=== PATIENT | female | born 1975 | race Caucasian/White ===

== ENCOUNTER 2025-02-25 08:50 | Inpatient (IN) | payer BC, SELFPAY ==
[2025-02-21 21:53] VITALS: BP 153/92
[2025-02-21 22:20] LABS: Urine Character Slightly Cloudy (Clear)
[2025-02-21 22:22] LABS: Hematocrit 41.6 % (37.0-47.0); Hemoglobin 14.1 g/dL (12.0-16.0); Mean Corp Hgb Conc. 33.9 g/dL (33.0-37.0); Mean Corpuscular Volume 91.8 fL (81.0-99.0); Nucleated Red Blood Cells % 0 %; Platelet Count 245 10^3/uL (130-400); Red Cell Dist. Width 13.4 % (11.5-14.5)
[2025-02-21 22:30] LABS: Urine Squamous Cell 0-2 /LPF (Few); Urine White Cell 30-40 /HPF (0-5)
[2025-02-21 22:40] LABS: ALT (SGPT) 16 U/L (0-35); AST (SGOT) 18 U/L (14-36); Albumin 4.0 g/dl (3.5-5.0); Alkaline Phosphatase 89 U/L (38-126); Blood Urea Nitrogen 10 mg/dl (7-17); Calcium 8.9 mg/dl (8.4-10.2); Carbon Dioxide 28 mmol/L (22-30); Chloride 101 mmol/L (98-107); Glucose 140 mg/dl (70-99); Potassium 4.5 mmol/L (3.5-5.1); Sodium 135 mmol/L (135-145); Total Protein 6.9 g/dl (6.3-8.2); eGFR > 60.00
[2025-02-21 22:49] VITALS: BMI 44.2
[2025-02-21 22:53] VITALS: BP 138/72
[2025-02-21 23:00] VITALS: BP 138/92
--- NOTE | 2025-02-21 23:40 | ED.GENMED ---
History of Present Illness
<Astrid Bruce PA-C - Last Filed: 02/23/25 17:28>
General
Chief Complaint: Flank Pain
Source: patient
Exam Limitations: none
Time Seen by Provider: 02/21/25 23:11
Nursing documentation reviewed up to this point in time: agreed with
History of Present Illness
History of Present Illness:
see mdm
Phy Exam
<Astrid Bruce PA-C - Last Filed: 02/23/25 17:28>
Physical Exam
Physical Exam:
see mdm
Course
<Astrid Bruce PA-C - Last Filed: 02/23/25 17:28>
Orders/Labs/Results
Orders:
Orders
02/21/25 22:09
Complete Blood Count/With Diff Urgent
Comprehensive Metabolic Panel Urgent
HCG, Serum Qualitative Screen Urgent
Comment: ADD ON
Urinalysis Reflex To Culture Urgent
Date Specimen was Collected: 02/21/25
Time Specimen was Collected: 21:59
Urine Microscopic Reflex Cult Urgent
Urine Culture Urgent
BETTIE Source: U
Specimen Description:
Date Specimen was Collected: 02/21/25
Time Specimen was Collected: 21:59
02/21/25 23:22
0.9% Sodium Chloride 1000 ml [Nss] 1,000 ml IV BOLUS
CefTRIAXone [Rocephin] 2,000 mg IV NOW STA
02/21/25 23:32
Lactic Acid Urgent
02/21/25 23:33
Add On- LAB Urgent
Tests Added?: hcg serum qual
02/21/25 23:40
Acetaminophen [Tylenol] 1,000 mg PO NOW STA
HYDROmorphone [Dilaudid] 1 mg IV NOW STA
02/21/25 23:45
Blood Culture Q30M
BETTIE Source: Blood/Venous
Specimen Description:
02/22/25
CT Abd/Pel (IV only)-DH only Urgent
Reason For Exam: L flank pain, eval stone vs pyelo
02/22/25 00:11
Blood Culture Q30M
BETTIE Source: Blood/Venous
Specimen Description:
02/22/25 01:49
US Pelvis W Transvag Combined Urgent
Reason For Exam: fvere, chills, ovarian cyst
02/22/25 03:10
Admit/Transfer Patient As Directed
Co-Sign Provider:
Level of Care: Observation services
Assign to:: Medical/Surgical
Physician / Group: Abdullahi
Diagnosis: UTI
PRN Pain Medication Management As Directed
May give lesser potent ordered pain med per pt: Yes
preference::
Protocol:: Medication orders for pain may be administered in a
manner that supports deferring to patient preference
when the pt is:
- Requesting an ordered lesser potent pain medication.
Least to most potent pain medications are defined
as: acetaminophen < NSAID < tramadol < opioids
(morphine, oxycodone, hydromorphone).
- Requesting a lesser dose of the same medication IF
ORDERED.
- Requesting a less intrusive route of administration
if both routes are prescribed by the provider (PO <
IV).
02/22/25 03:11
Code Status As Directed
Resuscitation Status: Full Code
02/22/25 Breakfast
Regular
At Your Request: Full Participation
Does patient need a safe tray?: No
02/22/25 06:43
Acetaminophen [Tylenol] 650 mg PO Q4HPRN PRN
Bisacodyl [Dulcolax] 10 mg RECTAL [id number] PRN
Docusate W/Senna [Senokot-S] 1 tablet PO BIDPRN PRN
HYDROmorphone [Dilaudid] 0.5 mg IV Q4HPRN PRN
Ketorolac [Toradol] 10 mg IV Q6HPRN PRN
Ondansetron Injectable [Zofran] 4 mg IV Q6HPRN PRN
Polyethylene Glycol Powder [Miralax] 17 grams PO DAILYPRN PRN
02/22/25 06:43
Activity As Directed
Activity Level: With Assistance
Pneumatic Compression Sleeves As Directed
Type: Knee high
Vital Signs As Directed
Frequency: Per unit guidelines
DX Deep Vein Thrombosis Video Routine
02/22/25 20:00
CefTRIAXone [Rocephin] 1,000 mg IV Q24H
Abnormal Lab Results
02/21/25
22:09
WBC 11.7 H 10^3/uL
(4.8-10.8)
MCH 31.1 H pg
(27.0-31.0)
MPV 10.9 H fL
(7.4-10.4)
Absolute Neuts (auto) 10.8 H 10^3/uL
(1.4-6.5)
Absolute Lymphs (auto) 0.4 L 10^3/uL
(1.2-3.4)
Neutrophils % 92.3 H %
(42.2-75.2)
Lymphocytes % 3.5 L %
(20.5-51.1)
Glucose 140 H mg/dl
(70-99)
Ur Occult Blood Reflex 2+ A
(Negative)
Urine Nitrite (Reflex) Positive A
(Negative)
Leukocyte Esterase Rfl 2+ A
(Negative)
Urine RBC 7-10 A /HPF
(0-2)
Urine WBC (Reflex) 30-40 A /HPF
(0-5)
Urine Bacteria (Reflex) Many A
(Negative)
Urine Albumin (Reflex) 1+ A
(Neg - Trace)
02/21/25 22:09
02/21/25 22:09
Vital Signs
Temp: 37.5 C
Initial and Last Documented VS:
Initial Vital Signs
Temp Pulse Resp BP Pulse Ox
36.8 C 92 22 153/92 99
02/21/25 21:53 02/21/25 21:53 02/21/25 21:53 02/21/25 21:53 02/21/25 21:53
Last Documented Vital Signs
Temp Pulse Resp BP Pulse Ox
36.6 C 58 14 142/78 99
02/23/25 15:00 02/23/25 15:00 02/23/25 15:00 02/23/25 15:00 02/23/25 15:00
<Gerardo Solorio, DO - Last Filed: 02/22/25 01:55>
Orders/Labs/Results
Orders:
Orders
02/21/25 22:09
Complete Blood Count/With Diff Urgent
Comprehensive Metabolic Panel Urgent
HCG, Serum Qualitative Screen Urgent
Comment: ADD ON
Urinalysis Reflex To Culture Urgent
Date Specimen was Collected: 02/21/25
Time Specimen was Collected: 21:59
Urine Microscopic Reflex Cult Urgent
Urine Culture Urgent
BETTIE Source: U
Specimen Description:
Date Specimen was Collected: 02/21/25
Time Specimen was Collected: 21:59
02/21/25 23:22
0.9% Sodium Chloride 1000 ml [Nss] 1,000 ml IV BOLUS
CefTRIAXone [Rocephin] 2,000 mg IV NOW STA
02/21/25 23:32
Lactic Acid Urgent
02/21/25 23:33
Add On- LAB Urgent
Tests Added?: hcg serum qual
02/21/25 23:40
Acetaminophen [Tylenol] 1,000 mg PO NOW STA
HYDROmorphone [Dilaudid] 1 mg IV NOW STA
02/21/25 23:45
Blood Culture Q30M
BETTIE Source: Blood/Venous
Specimen Description:
02/22/25
CT Abd/Pel (IV only)-DH only Urgent
Reason For Exam: L flank pain, eval stone vs pyelo
02/22/25 00:11
Blood Culture Q30M
BETTIE Source: Blood/Venous
Specimen Description:
02/22/25 01:49
US Pelvis W Transvag Combined Urgent
Reason For Exam: fvere, chills, ovarian cyst
02/22/25 03:10
Admit/Transfer Patient As Directed
Co-Sign Provider:
Level of Care: Observation services
Assign to:: Medical/Surgical
Physician / Group: Abdullahi
Diagnosis: UTI
PRN Pain Medication Management As Directed
May give lesser potent ordered pain med per pt: Yes
preference::
Protocol:: Medication orders for pain may be administered in a
manner that supports deferring to patient preference
when the pt is:
- Requesting an ordered lesser potent pain medication.
Least to most potent pain medications are defined
as: acetaminophen < NSAID < tramadol < opioids
(morphine, oxycodone, hydromorphone).
- Requesting a lesser dose of the same medication IF
ORDERED.
- Requesting a less intrusive route of administration
if both routes are prescribed by the provider (PO <
IV).
02/22/25 03:11
Code Status As Directed
Resuscitation Status: Full Code
02/22/25 Breakfast
Regular
At Your Request: Full Participation
Does patient need a safe tray?: No
02/22/25 06:43
Acetaminophen [Tylenol] 650 mg PO Q4HPRN PRN
Bisacodyl [Dulcolax] 10 mg RECTAL [id number] PRN
Docusate W/Senna [Senokot-S] 1 tablet PO BIDPRN PRN
HYDROmorphone [Dilaudid] 0.5 mg IV Q4HPRN PRN
Ketorolac [Toradol] 10 mg IV Q6HPRN PRN
Ondansetron Injectable [Zofran] 4 mg IV Q6HPRN PRN
Polyethylene Glycol Powder [Miralax] 17 grams PO DAILYPRN PRN
02/22/25 06:43
Activity As Directed
Activity Level: With Assistance
Pneumatic Compression Sleeves As Directed
Type: Knee high
Vital Signs As Directed
Frequency: Per unit guidelines
DX Deep Vein Thrombosis Video Routine
02/22/25 20:00
CefTRIAXone [Rocephin] 1,000 mg IV Q24H
Abnormal Lab Results
02/21/25
22:09
WBC 11.7 H 10^3/uL
(4.8-10.8)
MCH 31.1 H pg
(27.0-31.0)
MPV 10.9 H fL
(7.4-10.4)
Absolute Neuts (auto) 10.8 H 10^3/uL
(1.4-6.5)
Absolute Lymphs (auto) 0.4 L 10^3/uL
(1.2-3.4)
Neutrophils % 92.3 H %
(42.2-75.2)
Lymphocytes % 3.5 L %
(20.5-51.1)
Glucose 140 H mg/dl
(70-99)
Ur Occult Blood Reflex 2+ A
(Negative)
Urine Nitrite (Reflex) Positive A
(Negative)
Leukocyte Esterase Rfl 2+ A
(Negative)
Urine RBC 7-10 A /HPF
(0-2)
Urine WBC (Reflex) 30-40 A /HPF
(0-5)
Urine Bacteria (Reflex) Many A
(Negative)
Urine Albumin (Reflex) 1+ A
(Neg - Trace)
02/21/25 22:09
02/21/25 22:09
Vital Signs
Initial and Last Documented VS:
Initial Vital Signs
Temp Pulse Resp BP Pulse Ox
36.8 C 92 22 153/92 99
02/21/25 21:53 02/21/25 21:53 02/21/25 21:53 02/21/25 21:53 02/21/25 21:53
Last Documented Vital Signs
Temp Pulse Resp BP Pulse Ox
36.6 C 58 14 142/78 99
02/23/25 15:00 02/23/25 15:00 02/23/25 15:00 02/23/25 15:00 02/23/25 15:00
<Astrid Bruce PA-C - Last Filed: 02/23/25 17:28>
MDM/Problems Addressed
Differential Diagnosis Includes:
see MDM
MDM/Problems Addressed:
Note:
CHIEF COMPLAINT(S)
Kidney stone and related pain.
HISTORY OF PRESENT ILLNESS
The [id number] Y/O a female, has a history of kidney stones and presents with acute onset of LEFT-sided flank pain that began while at her sons baseball game this evenig aroun d7 pm. The symptoms started with chills, initially perceived as being cold
but persisted even after leaving the game. Upon urinating at a nearby location, the pain intensified, accompanied by shivering and an inability to drive due to severity. The patient describes the pain as severe, initially a 10 out of 10, slightly
relieved to a 9 out of 10 with bent knees. L back wrapping around to L flank.
She reports no vomiting but experienced near nausea. There is a history of kidney infection leading to sepsis, previously complicated by an adverse reaction to amoxicillin
PAST MEDICAL AND SURGICAL HISTORY
History of kidney stones with previous stent placement.
Past surgical history includes section and cholecystectomy.
CHRONIC MEDICAL CONDITIONS SIGNIFICANTLY AFFECTING CARE
The patient is on chronic medications including Adderall and Fexofenadine.
SOCIAL DETERMINANTS AFFECTING HEALTH
No explicit social determinants affecting health were discussed.
ALLERGIES
Reported intolerance to penicillin, amoxicillin, and associated medications, causing severe yeast infections.
MEDICATIONS
Adderall and Fexofenadine.
REVIEW OF SYSTEMS
- Urinary System: Flank pain, abnormal urine findings.
- Musculoskeletal System: Severe pain causing inability to drive, particularly on the right side.
- Constitutional: Severe chills, fever reported.
PHYSICAL EXAM
- Abdomen: Tenderness on palpation noted on the right flank area. No other findings reported.
- General Appearance: Significant discomfort and distress due to pain.
Nursing notes reviewed and vital signs reviewed.
PROBLEM LIST
Acute Problems:
- Suspected pyelonephritis
- Abdominal pain secondary to kidney stone
Chronic Problems:
- History of kidney stones
PLAN
The patient will receive intravenous antibiotics, specifically Ceftriaxone, as an empiric treatment for suspected pyelonephritis or urinary tract infection. Intravenous fluids will be administered to maintain hydration. For pain control, Dilaudid
will be administered as the patients pain level is described as very severe. A Computed Tomography scan of the abdomen will be conducted to assess for potential obstructive uropathy or kidney stones.
DIFFERENTIAL DIAGNOSIS
The Differential Diagnosis includes, in no particular order and is not limited to:
1. Pyelonephritis
2. Ureteral stone
3. Cystitis
4. Appendicitis
5. Diverticulitis
6. Ovarian cyst or torsion
7. Pelvic inflammatory disease
8. Gallbladder disease
9. Musculoskeletal pain
10. Renal abscess
49 y/o F
h/o remote kidney stone
started with chills/rigors this evening followed by L sided back pain to L flank
nausea but no vomiting
had one episode of dysuria at the beginning
on exam temp 99.5
feels warm
looks uncomfortable
tender L lower back
abdomen obese, nontender
wbc 11.7 left shift
cr normal
UA positive
CTAP with contrast to eval pyelo/obstruction
anticipate admission
<Astrid Bruce PA-C - Last Filed: 02/23/25 17:28>
*Pulse Oximetry
SaO2: 100
Oxygen Mode of Delivery: Room air
Patient hypoxic: no (99)
*Critical Care Note
Total Time (30-74mins, 75-104mins- exclusive of procedures): Not Applicable
<Gerardo Solorio DO - Last Filed: 02/22/25 01:55>
Update Note
Update Note:
NAME: ZOILA KNOX
DATE OF EXAM: 02/22/2025
Patient No: [id number]
Physician: RAUL
Date of : 1975
Past Medical History (entered by Technologist):
Reason For Exam (entered by Technologist):
Other Notes (entered by Technologist): lt flank pain c/f stones vs pyleo
Additional Information (per [facility]):
CT abdomen/pelvis with contrast
No comparison exam
IMPRESSION:
No bowel or renal obstruction.
No perinephric fat stranding.
Bilateral ovarian cysts or cystic lesions measuring up to 8.3 x 6 cm on the right and 4.2 x 4 cm on the left.
No free air or free fluid.
Appendix not visible.
Cholecystectomy.
Indeterminate low-attenuation hepatic lesions, possibly cysts or hemangiomas.
Small fat-containing umbilical hernia.
Case finalized on 02/22/25 01:20 EST
ED Attending Note
<Astrid Bruce PA-C - Last Filed: 02/23/25 17:28>
-
Portions of this chart may have been created with voice recognition software.� Occasional wrong word or��sound alike� substitutions may have occurred due to the inherent limitations of voice recognition software.
<Gerardo Solorio DO - Last Filed: 02/22/25 01:55>
ED Attending Note
Patient seen and examined by attending physician: Yes
ED Attending Note:
Note:
CHIEF COMPLAINT(S)
Severe back pain and uncontrolled shivering.
HISTORY OF PRESENT ILLNESS
The patient is a 49-year-old female with a past medical history of kidney stones. The patient reported an initial sensation matilde to a yeast infection, noted as pressure in the pelvic area. During a cold evening at her sons event, she experienced
intense shivering, which she describes as 'over the top.' Afterward, while out for pizza, she felt her knees buckle when using the bathroom, although she did not notice any blood in her urine. The shivering intensified, and she developed severe,
stabbing pain in her back, reminiscent of previous kidney stone episodes.
Due to the severity of the shivering and pain, she lay down in her car but was unable to stop shivering and felt excessively cold, despite her children claiming the car temperature was warm. She was unable to drive because of leg shaking and overall
weakness. Her and parents were contacted for assistance due to her condition.
Upon evaluation, there is a suspicion of a urinary tract infection potentially affecting the kidneys. Her clinical presentation suggests a possible acute pyelonephritis or undetected kidney stone, warranting monitoring and treatment.
PAST MEDICAL AND SURGICAL HISTORY
History of kidney stones.
PHYSICAL EXAM
General: Alert, mild acute distress.
Skin: Warm, dry.
Head: Normocephalic, atraumatic.
Neck: Supple, trachea midline.
Eye, Ears, Nose, Mouth, and Throat: Oral mucosa moist.
Cardiovascular: Normal peripheral perfusion, no edema.
Respiratory: Respirations are non-labored.
Gastrointestinal: Abdomen nondistended.
Back: Normal range of motion, normal alignment. Patient reports stabbing pain in the back reminiscent of previous kidney stones.
Musculoskeletal: Normal range of motion, normal strength.
Neurological: Alert and oriented to person, place, time, and situation, no focal neurological deficit observed.
Psychiatric: Cooperative, appropriate mood and affect.
PROBLEM LIST
Acute Problems:
- Severe back pain
- Uncontrolled shivering
- Suspected urinary tract infection with possible kidney involvement
PLAN
- Admit the patient for overnight observation.
- Initiate intravenous antibiotics to treat possible urinary tract infection.
- Monitor vital signs and symptoms to ensure no progression of the condition or complications.
- Consider further imaging if symptoms persist or worsen to rule out any hidden kidney stones.
DIFFERENTIAL DIAGNOSIS
The differential diagnosis includes, in no particular order and is not limited to:
- Acute pyelonephritis
- Kidney stones
- Urinary tract infection
- Sepsis
- Musculoskeletal pain
- Viral infections
- Renal colic
- Pelvic inflammatory disease
- Appendicitis
- Gastroenteritis
Disposition:
SUMMARY OF ENCOUNTER
The patient, a 49-year-old female with a history of kidney stones, was seen in the emergency department due to severe back pain and uncontrolled shivering. She reported sensations similar to a yeast infection followed by intense shivering during a
cold evening at her sons event. Symptoms included stabbing back pain reminiscent of kidney stones and significant shivering indicating a potential urinary tract infection affecting the kidneys. Evaluation suggested possible acute pyelonephritis. She
was managed with observation and treatment for a suspected urinary tract infection.
DISPOSITION
Admit
ASSESSMENT
The symptoms and clinical presentation suggest the patient is experiencing an acute episode of pyelonephritis with possible involvement of a urinary tract infection.
PLAN
The patient will be admitted for overnight observation and receive intravenous antibiotics to address the suspected urinary tract infection. Her vital signs and symptoms will be monitored closely to prevent progression or complications. Further
imaging may be considered if symptoms persist or worsen to assess for kidney stones.
MEDICAL DECISION MAKING
-Complexity of Data Reviewed: Chronic conditions affecting care [history of kidney stones] Differential diagnosis includes acute pyelonephritis, kidney stones, urinary tract infection, sepsis, musculoskeletal pain, viral infections, renal colic,
pelvic inflammatory disease, appendicitis, gastroenteritis.
DIAGNOSIS
1. Acute Pyelonephritis (ICD-10: N10)
2. Urinary Tract Infection (ICD-10: N39.0)
Discharge Plan
Departure
Patient Disposition: Admit
Date of Disposition: 02/22/25
Time of Disposition: 01:54
Presentation/result/management discussed w/ accepting MD/DO: Hospitalist
Discharge Problem:
Urinary tract infection, Fever
Interventions
Interventions:
*Risk Screen - Suicide Last Done: 02/21/25 21:57
*General Assessment Last Done: 02/21/25 22:50
*Neglect/Abuse Screening Last Done: 02/21/25 21:57
*ED- Fall Risk Assessment Last Done: 02/21/25 22:50
*ED COVID-19 Vaccine History Last Done: 02/21/25 21:57
*ED Influenza Vaccine History Last Done: 02/21/25 21:57
*Nursing Disposition Last Done: 02/22/25 14:33
VT-Iqkhkq-Bzoowtcxmf Assessment Last Done: 02/21/25 22:51
ED-Female Genitourinary Assessment Last Done: 02/21/25 22:51
Discharge Date and Time
Discharge Date/Time: 02/22/25 14:33
[2025-02-22 00:05] LABS: HCG, Serum Qualitative Screen Negative
[2025-02-22] MEDS: NSS 1000 IV (00:09)
[2025-02-22] MEDS: DILAUDID 1 MG IV ×3 (00:10→20:25)
[2025-02-22] MEDS: TYLENOL 1000 MG PO (00:10)
[2025-02-22] MEDS: ROCEPHIN 2000 MG IV ×2 (00:21→21:54)
--- NOTE | 2025-02-22 02:41 | HPS.HSE ---
Family Physician
-
Family Physician: Yifan Montalvo
Chief Complaint
-
Flank pain
History of Present Illness
This is a 49-year-old female past medical history significant for nephrolithiasis, ovarian cyst, anxiety who presents to the emergency department with worsening left-sided flank pain rigors and chills.
Patient reported that she has been having symptoms for about 1 week with pelvic fullness and discomfort as well as hesitancy. Over the last 24 hours she has developed urgency and some frequency. When she tried to urinate today she had severe flank
pain on the left side radiating to the groin. She denies any blood and thought this may be similar to her prior kidney stone. She reports having shaking chills and rigors throughout the day. She did not measure her temperature at home but she has
been taking intermittent Advil for generalized aches and pains. She denies any vomiting but did have nausea exacerbated by smell of food.
Intermittent back pain patient had a Tmax of 99.5, blood pressure 138/90 with a pulse rate of 92 and was satting 95% on room air.
WBC was 11.7 with normal hemoglobin and platelet counts. Electrolyte BUN/creatinine level in the normal range. UA was markedly positive.
CT of the abdomen pelvis was mostly unremarkable with bilateral ovarian cystic lesions, no hydronephrosis, perinephric fat stranding, nephrolithiasis to suggest a complicated urinary tract infection.
Medical History
Past Medical History
Past Medical History: Reports Psychiatric (Anxiety)
Additional Past Medical History:
Nephrolithiasis status post total stenting and removal, complicated by yeast infection secondary to antibiotics (specifically amoxicillin).
Past Surgical History: Reports Appendectomy and
Social History
Tobacco: Non-smoker
Alcohol: None
Drug: None
Living: With Family
Family History
Family History: Not pertinent
Allergies / Home Medications
Allergies reflects when Allergies were last updated in [employer].
Home Medications with original date entered in [employer]
Allergy/Medication List:
Allergies
Allergy/AdvReac Type Severity Reaction Status Date / Time
Sulfa (Sulfonamide Allergy Hives Verified 02/21/25 21:59
Antibiotics)
Escitalopram 10 mg tablets, 10 mg p.o. daily
Lorazepam 0.5 mg tablets, 0.5 mg to 1 mg p.o. daily as needed anxiety
Review of Systems
-
Constitutional: Reports No Symptoms
EENT: Reports No Symptoms
Respiratory: Reports No Symptoms
Cardiac: Reports No Symptoms
Abdomen/GI: Reports Nausea
: Reports Flank Pain (Left-sided) and Urgency
Musculoskeletal: Reports No Symptoms
Skin: Reports No Symptoms
Neurological: Reports No Symptoms
Endocrine: Reports No Symptoms
Hematologic/Lymphatic: Reports No Symptoms
Psych: Reports No Symptoms
Physical Exam
Vital Signs
Vital Signs
Temp Pulse Resp BP Pulse Ox
99.5 F 92 22 138/92 94
02/22/25 01:00 02/21/25 21:53 02/21/25 21:53 02/21/25 23:00 02/22/25 00:28
Physical Exam
General: Well Developed, Well Nourished and No Apparent Distress
HEENT: NormoCephalic, Moist mucous membranes and Atraumatic
Respiratory: Clear
Cardiac: S1/S2 and Regular Rhythm; No Murmur or Rub
GI: Soft, Non Distended and Normal Bowel Sounds; No Organomegaly
Rectal: Deferred by Provider
Genito-urinary: Deferred by me
Musculoskeletal: No Clubbing, No Cyanosis and No Edema
Skin: No Rash
Neuro: AO x 3 and Nonfocal/grossly intact
Laboratory Results
-
02/21/25 22:09
02/21/25 22:09
Laboratory Results
Lactic Acid 1.4 mmol/L (0.7-2.0) 02/22/25 00:11
Total Bilirubin 0.8 mg/dl (0.2-1.3) 02/21/25 22:09
AST 18 U/L (14-36) 02/21/25 22:09
ALT 16 U/L (0-35) 02/21/25 22:09
Alkaline Phosphatase 89 U/L (38-126) 02/21/25 22:09
Data Reviewed
-
CT Scan: Report Reviewed by me
Lab Data: Labs Reviewed by me
Impression/Plan
-
IMPRESSION:
49-year-old female with past medical history significant for ovarian cyst, nephrolithiasis and anxiety who presents to the emergency department with pelvic fullness, recent urinary urgency and flank pain with the rigors and chills found to have mild
leukocytosis but markedly positive UA. She had a low-grade temp of 98.5. The CT of the abdomen pelvis shows no acute findings and specifically shows no stones or urinary system obstruction. She does have known ovarian cysts measuring 8.3 x 6
centimeters on the right and 4.2 x 4 on the left. No evidence of ruptured cyst.
PLAN:
Suspected early pyelonephritis
-Admit to MedSurg observation
-IV ceftriaxone
-Pain control and antiemetics
-Urine cultures have been sent, blood cultures afebrile
-Status post IV fluids in the ED, diet as tolerated for now
� pelvic u/s to eval ovarian cysts for rupture
DVT prophylaxis�SCDs
CODE STATUS�full code
[2025-02-22] MEDS: DILAUDID 0.5 MG IV ×2 (07:10→12:19)
[2025-02-22 07:17] VITALS: BP 108/71
[2025-02-22] MEDS: ZOFRAN 4 MG IV (12:18)
[2025-02-22] MEDS: ATIVAN 0.5 MG PO ×2 (12:34→20:26)
[2025-02-22] MEDS: LEXAPRO 10 MG PO (12:34)
--- NOTE | 2025-02-22 13:03 | PTCARENOTE ---
pt c/o central tight chest pain. MD aware. ekg nsr. dilaudid, zofran, and ativan admin. positive prelim cultures gram - baccili. Dr. burgess made aware. will monitor.
--- NOTE | 2025-02-22 13:20 | W.PN.HOSP.TC ---
Today's Communication/Plan
-
Transition to IV Zosyn due to bacteremia
Consult infectious disease
Follow cultures and CBC
Analgesics and antiemetics
Assessment / Plan
Assessment / Plan
#GNR bacteremia
#Suspected left pyelonephritis
- Presented with sudden onset flank pain, rigors while at her son's baseball game yesterday
- Initial concern for ruptured ovarian cyst though gynecologic US without consistent findings
- Blood cultures x 2 came back for GNRs; CT in ED showed likely inflammation of left renal pelvis
- Initially started on ceftriaxone, escalate to IV Zosyn for now and consult ID
- Continue to trend CBC and temperature curve, follow cultures
- Continue analgesics and antiemetics, encourage oral hydration
#H/O nephrolithiasis
- CT scan here without any signs of kidney or ureter stones
#H/O ovarian cyst
- CT scan here shows ovarian cyst though no signs of rupture
#Generalized anxiety
- Ordered patient's home Lexapro and Ativan
Diet: Regular
Thromboprophylaxis: SCDs, low risk with ambulation
CODE STATUS: Full code
Disposition: Home, likely in 48 hours
Anticipated Discharge: > 48 hours
Subjective/Interval History
-
Date of Service: February 22, 2025
Seen and examined at the bedside. No acute events reported overnight. AFVSS this morning
Blood cultures x 2 with preliminary positive findings of gram-negative rods.
Patient states she still has some left flank pain, only slightly improved with current analgesics
Objective Data
-
Vital Signs:
Vital Signs
Temp Pulse Resp BP Pulse Ox
97.9 F 57 17 108/71 95
02/22/25 12:16 02/22/25 07:17 02/22/25 07:17 02/22/25 07:17 02/22/25 07:17
Review of Systems
-
History Source: Patient
All other systems: Reviewed and negative
Physical Exam
-
General: Well Developed, Well Nourished, Obese and Other (Appears ill)
HEENT: Normocephalic, Atraumatic and Moist Mucous Membranes
Respiratory: Clear to Auscultation and Non Labored Respirations; Negative Accessory Resp Muscle Use
Cardiac: Regular Rhythm and S1/S2; Negative Murmur, Rub or Gallop
GI: Soft, Nondistended, Normal Bowel Sounds and Tender (Left-sided, nonperitoneal)
Musculoskeletal: No Clubbing, No Cyanosis and No Edema
Skin: Warm and Dry; Negative Rash
Neuro: AO x 3, Nonfocal/Grossly Intact and Central Nerve's Intact
Psych: Calm
Data Reviewed
-
Labs: Labs Reviewed by me, Discussed with Physician (Infectious disease) and Discussed with Patient
--- NOTE | 2025-02-22 14:42 | CON.ID ---
Consultation
-
Date/Time Consultation Requested: February 22, 2025 1318
Date/Time Consultation Performed: February 22, 2025 1440
Requesting Provider: Dr. Sherman Lakhani
Performing Provider: Dr. Collette Parish
Reason for Consultation: Bacteremia/UTI
Chief Complaint / Past History
Chief Complaint
Left flank pain, rigors and fevers
History of Present Illness
49-year-old female with history of nephrolithiasis who presented to the ED last night due to severe left flank pain and rigors. She started having bladder pressure and urinary frequency on February 20. She took a dose of fluconazole
thinking it was a yeast infection. Yesterday while at her son's baseball game, she suddenly developed left flank pain and shivers. After the game, she took her son out to dinner. She continued to feel unwell with violent shaking chills. She then
came to the ER. White count was 11.7. Urine analysis positive nitrite, 2+ leukocyte esterase, 30-40 white blood cells. Urine culture pending. Admission blood cultures x [address] of the abdomen pelvis shows
enhancement/inflammation changes of the left renal pelvis. She received ceftriaxone in the ER then changed to Zosyn today. Patient reports last history of pyelonephritis was 5 years ago when she had obstructive uropathy requiring stent placement
and subsequently removed. Patient prefers to avoid amoxicillin which always gives her severe vaginal use yeast infection.
Past History
Additional Past Medical History:
Nephrolithiasis hx ureter stent
Anxiety
Ovarian cysts
Appendectomy
Allergy History:
Sulfa (Sulfonamide Antibiotics) Allergy (Verified 02/21/25 21:59)
Hives
Medications Reviewed: Yes
Current Antibiotics:
Status post ceftriaxone in ER
Zosyn
Social History
Tobacco: Non-Smoker
Alcohol: None
Drug: None
Personal:
Living: With Family
Employment: Employed (Teacher)
Family History
Family History: Not Pertinent
Review of Systems
Review of Systems
General: Fever, Chills and Change in Appetite
HEENT: Negative Sinus Problems or Headache
Cardiovascular: Negative Chest Pain or Dyspnea
Respiratory: Negative Dyspnea or Cough
Gasteroenterology: Negative Nausea, Vomiting or Diarrhea
Genital / Urological: Dysuria and Flank Pain
Endocrine: Weakness
Skin / Hair / Nails: Negative Rash
All systems: All other systems were reviewed and were negative
Vital Signs
Temp Pulse Resp BP Pulse Ox
97.9 F 57 17 108/71 95
02/22/25 12:16 02/22/25 07:17 02/22/25 07:17 02/22/25 07:17 02/22/25 07:17
Physical Exam
Physical Exam
Constitutional: Acutely Ill
Eyes: No Conjunctival Hemorrhage and Sclera Anicteric
Cardiovascular: Regular Rate and S1/S2
Pulmonary: Clear
Gastrointestinal: Soft, Non Tender and Non Distended
Genito-Urinary: CVA Tenderness (left)
Extremities: Negative Edema
Neurological: AO x 3
Lab / Diagnostic Study Results
02/21/25 22:09
02/21/25 22:09
Abs Immat Gran (auto) 0.0 10^3/uL (0-0.05) 02/21/25 22:09
Absolute Neuts (auto) 10.8 10^3/uL (1.4-6.5) H 02/21/25 22:09
Absolute Lymphs (auto) 0.4 10^3/uL (1.2-3.4) L 02/21/25 22:09
Absolute Monos (auto) 0.4 10^3/uL (0.1-0.6) 02/21/25 22:09
Absolute Basos (auto) 0.0 10^3/uL (0-0.2) 02/21/25 22:09
Immature Gran % 0.3 % (0-0.5) 02/21/25 22:09
Neutrophils % 92.3 % (42.2-75.2) H 02/21/25 22:09
Lymphocytes % 3.5 % (20.5-51.1) L 02/21/25 22:09
Monocytes % 3.3 % (1.7-9.3) 02/21/25 22:09
Eosinophils % 0.3 % (0-6) 02/21/25 22:09
Basophils % 0.3 % (0-2) 02/21/25 22:09
Lactic Acid 1.4 mmol/L (0.7-2.0) 02/22/25 00:11
Ur Squamous Epith Cells 0-2 /LPF (Few) 02/21/25 22:09
Microbiology Results
Micro:
02/22/25 00:11 Blood Culture - Preliminary
Blood/Venous Escherichia coli
Gram Stain - Preliminary
02/22/25 00:11 Blood Culture - Preliminary
Blood/Venous Positive culture in progress
Gram Stain - Preliminary
02/21/25 22:09 Urine Culture - Pending
Urine
02/22/25 CT a/p: No renal or ureteral calculus. No bladder calculus. No hydronephrosis or obstructive uropathy. Findings suspicious for mild inflammatory changes in the left renal sinus and renal pelvis, concerning for urinary tract
infection/pyelitis. Clinical correlation recommended. Incidental bilateral ovarian cysts measuring up to 8.2 cm on the right and 4 cm in length. Low-attenuation intrahepatic space-occupying lesions. There appears to be a couple of cysts, though
there are other enhancing low-attenuation structures noted. Possibly hemangiomas. Further characterization would be recommended with follow-up MRI.
02/22/25 Pelvic US: Bilateral dominant ovarian cysts measuring up to 7.3 cm on the right and 8.7 cm on the left. Ovarian blood flow documented. Incidental small uterine fibroid.Bilateral dominant ovarian cysts measuring up to 7.3 cm on the right and
8.7 cm on the left. Ovarian blood flow documented. Incidental small uterine fibroid.
Assessment / Plan
# Complicated UTI/left pyelonephritis
# E. coli bacteremia
# Leukocytosis
-CT a/p: no hydronephrosis; + left pyelitis
-Can de-escalate Zosyn back to ceftriaxone. Biofire -> E. coli is NOT ESBL.
- Repeat blood cx's x 2 in am.
- Trend wbc/temps.
# Enlarging bilateral ovarian cysts
- Follow-up with [facility] outpatient.
[2025-02-22 14:47] VITALS: BP 165/98; BMI 42.7
[2025-02-22] MEDS: TORADOL 10 MG IV ×2 (15:12→22:04)
[2025-02-22] MEDS: STERILE WATER FOR INJECTION 20 ML IV (22:14)
[2025-02-22 23:05] VITALS: BP 128/71
[2025-02-23 07:00] VITALS: BP 147/79
[2025-02-23] MEDS: LEXAPRO 10 MG PO (08:25)
[2025-02-23] MEDS: TYLENOL 650 MG PO (08:27)
[2025-02-23] MEDS: ZOFRAN 4 MG IV ×2 (09:05→22:32)
[2025-02-23 09:51] LABS: Hematocrit 37.3 % (37.0-47.0); Hemoglobin 12.6 g/dL (12.0-16.0); Mean Corp Hgb Conc. 33.8 g/dL (33.0-37.0); Mean Corpuscular Volume 91.9 fL (81.0-99.0); Nucleated Red Blood Cells % 0 %; Platelet Count 188 10^3/uL (130-400); Red Cell Dist. Width 13.3 % (11.5-14.5)
[2025-02-23 10:14] LABS: Blood Urea Nitrogen 8 mg/dl (7-17); Calcium 8.5 mg/dl (8.4-10.2); Carbon Dioxide 26 mmol/L (22-30); Chloride 103 mmol/L (98-107); Estimated Creatinine Clearance 103 ml/min; Glucose 91 mg/dl (70-99); Potassium 4.2 mmol/L (3.5-5.1); Sodium 134 mmol/L (135-145); eGFR > 60.00
--- NOTE | 2025-02-23 11:01 | W.PN.HOSP.TC ---
Today's Communication/Plan
-
Continue ceftriaxone
Follow initial and repeat cultures
Check B12 and folate
Trend CBC and temperature curve
Assessment / Plan
Assessment / Plan
#E. coli bacteremia
#Left pyelitis
- Presented with sudden onset flank pain, rigors while at her son's baseball game yesterday
- Initial concern for ruptured ovarian cyst though gynecologic US without consistent findings
- Blood cultures x 2 came back for GNRs; CT in ED showed likely inflammation of left renal pelvis
- Initially started on ceftriaxone, ID consulted and recommended to continue ceftriaxone
- Continue ceftriaxone 2 g daily for bacteremia, consider prolonged course of 10 to 14 days
- Continue to trend CBC and temperature curve, follow initial and repeat cultures
- Continue analgesics and antiemetics, encourage oral hydration
#Leukopenia
- Likely secondary to inflammatory process, initially with leukocytosis
- Will check vitamin B12 and folate levels for completeness, replete as needed
- Trend CBC with differential
#H/O nephrolithiasis
- CT scan here without any signs of kidney or ureter stones
#H/O ovarian cyst
- CT scan here shows ovarian cyst though no signs of rupture
#Generalized anxiety
- C/W patient's home Lexapro and Ativan regimen
Diet: Regular
Thromboprophylaxis: SCDs, low risk with ambulation
CODE STATUS: Full code
Disposition: Home in 24-48 hours
Anticipated Discharge: 24 - 48 hours
Subjective/Interval History
-
Date of Service: February 23, 2025
Seen and examined at the bedside. No acute events reported overnight. AFVSS this morning
Patient states she is developed some dysuria since admission. White cell count down from 11.7-4.5
Denies any other new complaints today. States appetite is fine. Occasional nausea. Denies chest pain, dyspnea, fevers or chills
Objective Data
-
Labs:
Laboratory Results
02/23/25
08:57
WBC 4.5 L
Hgb 12.6
Hct 37.3
Plt Count 188 D
Sodium 134 L
Potassium 4.2
Chloride 103
Carbon Dioxide 26
BUN 8
Creatinine 0.9
Glucose 91
Calcium 8.5
Vital Signs:
Vital Signs
Temp Pulse Resp BP Pulse Ox
98.2 F 74 16 147/79 93
02/23/25 07:00 02/23/25 07:00 02/23/25 07:00 02/23/25 07:00 02/23/25 07:00
I&O
02/22/25 02/23/25 02/24/25
06:59 06:59 06:59
Intake Total 960 / 960
Balance 960 / 960
Review of Systems
-
History Source: Patient
All other systems: Reviewed and negative
Physical Exam
-
General: Well Developed, Well Nourished, No Apparent Distress and Other (Appears ill, slightly toxic)
HEENT: Normocephalic, Atraumatic and Moist Mucous Membranes
Respiratory: Clear to Auscultation, Non Labored Respirations and Accessory Resp Muscle Use
Cardiac: Regular Rhythm and S1/S2; Negative Murmur, Rub or Gallop
GI: Soft, Nontender, Nondistended and Normal Bowel Sounds
Genito-urinary: No Costovertebral Tender
Musculoskeletal: No Clubbing, No Cyanosis and No Edema
Skin: Warm and Dry; Negative Rash
Neuro: AO x 3, Nonfocal/Grossly Intact and Central Nerve's Intact; Negative Tremors
Psych: Calm
Data Reviewed
-
Labs: Labs Reviewed by me, Discussed with Physician (ID) and Discussed with Patient
--- NOTE | 2025-02-23 11:07 | W.PN.ID1 ---
Date of Service
Date of Service: February 23, 2025
Today's Communication
Continue ceftriaxone.
Assessment / Plan
# Complicated UTI/left pyelonephritis
# E. coli bacteremia
# Leukocytosis - resolved
-CT a/p: no hydronephrosis; + left pyelitis
- Await Ucx.
-Continue ceftriaxone. (Biofire -> E. coli is NOT ESBL)
- Repeat blood cx's x 2 pending
- Trend wbc/temps.
# Enlarging bilateral ovarian cysts
- Follow-up with [facility] outpatient.
Chief Complaint
-: UTI and Bacteremia
Subjective / Review of Systems
Left flank pain improved. Now more urine symptoms of dysuria, frequency.
Vital Signs / Physical Exam
Vital Signs
Vital Signs
Temp Pulse Resp BP Pulse Ox
98.2 F 74 16 147/79 93
02/23/25 07:00 02/23/25 07:00 02/23/25 07:00 02/23/25 07:00 02/23/25 07:00
Physical Exam
Constitutional: No Acute Distress
Cardiovascular: Regular Rate and S1/S2
Pulmonary: Clear
Gastrointestinal: Soft, Non Tender and Non Distended
Genito-Urinary: CVA Tenderness (left, mild)
Extremities: Negative Edema
Neurological: AO x 3
Objective Data
Lab Data
Lab Results
02/23/25 08:57
02/23/25 08:57
Estimated Creat Clear 103 ml/min 02/23/25 08:57
Lactic Acid 1.4 mmol/L (0.7-2.0) 02/22/25 00:11
Total Bilirubin 0.8 mg/dl (0.2-1.3) 02/21/25 22:09
AST 18 U/L (14-36) 02/21/25 22:09
ALT 16 U/L (0-35) 02/21/25 22:09
Alkaline Phosphatase 89 U/L (38-126) 02/21/25 22:09
Most recent labs reviewed.
Micro Results:
02/21/25 22:09 Urine Culture - Preliminary
Urine
02/23/25 09:48 Blood Culture - Pending
Blood/Venous
02/23/25 08:57 Blood Culture - Pending
Blood/Venous
02/22/25 00:11 Blood Culture - Preliminary
Blood/Venous Positive culture in progress
Gram Stain - Final
02/22/25 00:11 Blood Culture - Preliminary
Blood/Venous Escherichia coli
Gram Stain - Preliminary
02/22/25 CT a/p: No renal or ureteral calculus. No bladder calculus. No hydronephrosis or obstructive uropathy. Findings suspicious for mild inflammatory changes in the left renal sinus and renal pelvis, concerning for urinary tract
infection/pyelitis. Clinical correlation recommended. Incidental bilateral ovarian cysts measuring up to 8.2 cm on the right and 4 cm in length. Low-attenuation intrahepatic space-occupying lesions. There appears to be a couple of cysts, though
there are other enhancing low-attenuation structures noted. Possibly hemangiomas. Further characterization would be recommended with follow-up MRI.
02/22/25 Pelvic US: Bilateral dominant ovarian cysts measuring up to 7.3 cm on the right and 8.7 cm on the left. Ovarian blood flow documented. Incidental small uterine fibroid.Bilateral dominant ovarian cysts measuring up to 7.3 cm on the right and
8.7 cm on the left. Ovarian blood flow documented. Incidental small uterine fibroid.
--- NOTE | 2025-02-23 14:59 | CM ---
manager placement reviewed patient's chart and patient was admitted under OBS, OBS letter provided to patient signed and placed on chart, patient lives with her spouse and 2 kids in a 2 story home, patient is independent with adl's and ambulation, no
dme, patient drives, home when stable no needs when stable.
PCP: Dr Montalvo
Pharmacy: [facility] in [place]
[2025-02-23 15:00] VITALS: BP 142/78
[2025-02-23] MEDS: DILAUDID 1 MG IV ×2 (15:13→22:33)
[2025-02-23] MEDS: TORADOL 10 MG IV (18:20)
[2025-02-23] MEDS: ATIVAN 0.5 MG PO (20:47)
[2025-02-23] MEDS: ROCEPHIN 2000 MG IV (22:33)
[2025-02-23] MEDS: STERILE WATER FOR INJECTION 20 ML IV (22:33)
[2025-02-23 23:15] VITALS: BP 132/74
[2025-02-24 07:00] VITALS: BP 139/79
[2025-02-24 07:48] LABS: Hematocrit 37.9 % (37.0-47.0); Hemoglobin 12.6 g/dL (12.0-16.0); Mean Corp Hgb Conc. 33.2 g/dL (33.0-37.0); Mean Corpuscular Volume 95.0 fL (81.0-99.0); Platelet Count 187 10^3/uL (130-400); Red Cell Dist. Width 13.3 % (11.5-14.5)
[2025-02-24 08:24] LABS: Absolute Neutrophils -Man Diff 1.8 10^3/uL (1.4-6.5); Normal RBC Morphology Yes; Platelets Checked Yes; Total Cells Counted 100
[2025-02-24 09:09] LABS: Folate 9.9 ng/ml (2.76-20); Vitamin B12 883 pg/ml (239-931)
[2025-02-24] MEDS: LEXAPRO 10 MG PO (09:11)
[2025-02-24] MEDS: ZOFRAN 4 MG IV ×2 (10:37→21:20)
--- NOTE | 2025-02-24 10:44 | W.PN.ID1 ---
Date of Service
Date of Service: February 24, 2025
Today's Communication
- Tomorrow anticipate transition to cipro 500mg po bid through 03/02.
Assessment / Plan
# Complicated UTI/left pyelonephritis
# E. coli bacteremia
# Leukocytosis - resolved, now leukopenia
-CT a/p: no hydronephrosis; + left pyelitis
- Ucx. E. coli
-Repeat bcx neg to date.
-Continue ceftriaxone (d4)
- Tomorrow anticipate transition to cipro 500mg po bid through 03/02.
# Enlarging bilateral ovarian cysts
- Follow-up with [facility] RN outpatient.
Chief Complaint
-: UTI and Bacteremia
Subjective / Review of Systems
Continues to feel a little better. Urine sxs better.
Vital Signs / Physical Exam
Vital Signs
Vital Signs
Temp Pulse Resp BP Pulse Ox
98.0 F 55 18 139/79 96
02/24/25 07:00 02/24/25 07:00 02/24/25 07:00 02/24/25 07:00 02/24/25 07:00
Physical Exam
Constitutional: No Acute Distress
Cardiovascular: Regular Rate and S1/S2
Pulmonary: Clear
Gastrointestinal: Soft, Non Tender and Non Distended
Genito-Urinary: CVA Tenderness (left, mild)
Extremities: Negative Edema
Neurological: AO x 3
Objective Data
Lab Data
Lab Results
02/24/25 07:06
02/23/25 08:57
Estimated Creat Clear 103 ml/min 02/23/25 08:57
Lactic Acid 1.4 mmol/L (0.7-2.0) 02/22/25 00:11
Total Bilirubin 0.8 mg/dl (0.2-1.3) 02/21/25 22:09
AST 18 U/L (14-36) 02/21/25 22:09
ALT 16 U/L (0-35) 02/21/25 22:09
Alkaline Phosphatase 89 U/L (38-126) 02/21/25 22:09
Most recent labs reviewed.
Micro Results:
02/21/25 22:09 Urine Culture - Preliminary
Urine Escherichia coli
02/22/25 00:11 Blood Culture - Final
Blood/Venous Escherichia coli
Gram Stain - Final
02/22/25 00:11 Blood Culture - Preliminary
Blood/Venous Escherichia coli
Gram Stain - Preliminary
02/23/25 09:48 Blood Culture - Preliminary
Blood/Venous No Growth in 24 hours- Final report to follow
02/23/25 08:57 Blood Culture - Preliminary
Blood/Venous No Growth in 24 hours- Final report to follow
02/22/25 CT a/p: No renal or ureteral calculus. No bladder calculus. No hydronephrosis or obstructive uropathy. Findings suspicious for mild inflammatory changes in the left renal sinus and renal pelvis, concerning for urinary tract
infection/pyelitis. Clinical correlation recommended. Incidental bilateral ovarian cysts measuring up to 8.2 cm on the right and 4 cm in length. Low-attenuation intrahepatic space-occupying lesions. There appears to be a couple of cysts, though
there are other enhancing low-attenuation structures noted. Possibly hemangiomas. Further characterization would be recommended with follow-up MRI.
02/22/25 Pelvic US: Bilateral dominant ovarian cysts measuring up to 7.3 cm on the right and 8.7 cm on the left. Ovarian blood flow documented. Incidental small uterine fibroid.Bilateral dominant ovarian cysts measuring up to 7.3 cm on the right and
8.7 cm on the left. Ovarian blood flow documented. Incidental small uterine fibroid.
--- NOTE | 2025-02-24 11:06 | W.PN.HOSP.TC ---
Today's Communication/Plan
-
Continue IV ceftriaxone
Follow repeat culture
Plan to transition to oral antibiotics tomorrow
Assessment / Plan
Assessment / Plan
#E. coli bacteremia
#Left pyelitis
- Presented with sudden onset flank pain, rigors while at her son's baseball game yesterday
- Initial concern for ruptured ovarian cyst though gynecologic US without consistent findings
- Blood cultures x 2 came back for GNRs; CT in ED showed likely inflammation of left renal pelvis
- Initially started on ceftriaxone, ID consulted and recommended to continue ceftriaxone
- Urine cultures with pansensitive E. coli, continue IV ceftriaxone 2 g for today
- Continue to trend CBC and temperature curve, follow repeat cultures
- Continue analgesics and antiemetics, encourage oral hydration
- Plan to transition to ciprofloxacin tomorrow through 03/02 per ID rec
#Leukopenia
- Likely secondary to inflammatory process, initially with leukocytosis
- B12 and folate within normal range
- Trend CBC with differential
#H/O nephrolithiasis
- CT scan here without any signs of kidney or ureter stones
#H/O ovarian cyst
- CT scan here shows ovarian cyst though no signs of rupture
#Generalized anxiety
- C/W patient's home Lexapro and Ativan regimen
Diet: Regular
Thromboprophylaxis: SCDs, low risk with ambulation
CODE STATUS: Full code
Disposition: Home in 24-48 hours
Anticipated Discharge: 24 - 48 hours
Subjective/Interval History
-
Date of Service: February 24, 2025
Seen and examined at bedside. No acute events reported overnight. AFVSS this morning
Patient states she still has some discomfort in the abdomen and dysuria. Occasional nausea as persistent as well. Does states she feels slightly better generally
Denies any new complaints today. Folate and B12 levels WNL on labs, WBC down trended. Blood culture with pansensitive E. coli
Objective Data
-
Labs:
Laboratory Results
02/24/25
07:06
WBC 2.9 L
Hgb 12.6
Hct 37.9
Plt Count 187
Vital Signs:
Vital Signs
Temp Pulse Resp BP Pulse Ox
98.0 F 55 18 139/79 96
02/24/25 07:00 02/24/25 07:00 02/24/25 07:00 02/24/25 07:00 02/24/25 07:00
I&O
02/23/25 02/24/25 02/25/25
06:59 06:59 06:59
Intake Total 960 / 960 360 / 360
Balance 960 / 960 360 / 360
Review of Systems
-
History Source: Patient
All other systems: Reviewed and negative
Physical Exam
-
General: Well Developed, No Apparent Distress and Obese
HEENT: Normocephalic, Atraumatic, Moist Mucous Membranes and Anicteric
Respiratory: Clear to Auscultation and Non Labored Respirations; Negative Accessory Resp Muscle Use
Cardiac: Regular Rhythm and S1/S2; Negative Murmur, Rub or Gallop
GI: Soft, Nondistended, Normal Bowel Sounds and Other (Mild left-sided tenderness without peritoneal findings)
Genito-urinary: No Costovertebral Tender and Other (No suprapubic discomfort)
Musculoskeletal: No Clubbing, No Cyanosis and No Edema
Skin: Warm and Dry; Negative Rash
Neuro: AO x 3, Nonfocal/Grossly Intact and Central Nerve's Intact
Psych: Calm
Data Reviewed
-
Labs: Labs Reviewed by me, Discussed with Physician (ID) and Discussed with Patient
[2025-02-24 15:00] VITALS: BP 137/80
[2025-02-24] MEDS: ATIVAN 0.5 MG PO ×2 (16:33→21:18)
[2025-02-24] MEDS: STERILE WATER FOR INJECTION 20 ML IV (21:16)
[2025-02-24] MEDS: ROCEPHIN 2000 MG IV (21:16)
[2025-02-24] MEDS: DILAUDID 1 MG IV (21:31)
[2025-02-24 22:52] VITALS: BP 119/68
[2025-02-25 07:20] VITALS: BP 121/76
[2025-02-25] MEDS: LEXAPRO 10 MG PO (08:22)
--- NOTE | 2025-02-25 08:51 | W.PN.HOSP.TC ---
Today's Communication/Plan
-
Discharge
Ciprofloxacin through 03/02
Assessment / Plan
Assessment / Plan
#E. coli bacteremia
#Left pyelitis
- Presented with sudden onset flank pain, rigors while at her son's baseball game yesterday
- Initial concern for ruptured ovarian cyst though gynecologic US without consistent findings
- Blood cultures x 2 came back for GNRs; CT in ED showed likely inflammation of left renal pelvis
- Initially started on ceftriaxone, ID consulted and recommended to continue ceftriaxone
- Urine cultures with pansensitive E. coli, continue IV ceftriaxone 2 g for today
- Continue to trend CBC and temperature curve, follow repeat cultures
- Continue analgesics and antiemetics, encourage oral hydration
- Plan to transition to ciprofloxacin through 03/02 per ID rec
#Leukopenia
- Likely secondary to inflammatory process, initially with leukocytosis
- B12 and folate within normal range
- Trend CBC with differential
#H/O nephrolithiasis
- CT scan here without any signs of kidney or ureter stones
#H/O ovarian cyst
- CT scan here shows ovarian cyst though no signs of rupture
#Generalized anxiety
- C/W patient's home Lexapro and Ativan regimen
Diet: Regular
Thromboprophylaxis: SCDs, low risk with ambulation
CODE STATUS: Full code
Disposition: Home in 24-48 hours
Anticipated Discharge: Today
Subjective/Interval History
-
Date of Service: February 25, 2025
Seen and examined at the bedside. No acute events reported overnight. AFVSS this morning
White cell count stable. No fevers or chills. Patient states pain and nausea are improving
Denies any new complaints today. States she feels well enough for home
Objective Data
-
Labs:
Laboratory Results
02/25/25
08:24
WBC Pending
Hgb Pending
Hct Pending
Plt Count Pending
Vital Signs:
Vital Signs
Temp Pulse Resp BP Pulse Ox
97.8 F 50 16 121/76 97
02/25/25 07:20 02/25/25 07:20 02/25/25 07:20 02/25/25 07:20 02/25/25 07:20
I&O
02/24/25 02/25/25 02/26/25
06:59 06:59 06:59
Intake Total 360 / 360 1440 / 1440
Balance 360 / 360 1440 / 1440
Review of Systems
-
History Source: Patient
All other systems: Reviewed and negative
Physical Exam
-
General: Well Developed, No Apparent Distress and Obese
HEENT: Normocephalic, Atraumatic, Moist Mucous Membranes and Anicteric
Respiratory: Clear to Auscultation and Non Labored Respirations; Negative Accessory Resp Muscle Use
Cardiac: Regular Rhythm and S1/S2; Negative Murmur, Rub or Gallop
GI: Soft, Nontender, Nondistended and Normal Bowel Sounds
Genito-urinary: No Costovertebral Tender and Other (No suprapubic tenderness)
Musculoskeletal: No Clubbing, No Cyanosis and No Edema
Skin: Warm and Dry; Negative Rash
Neuro: AO x 3, Nonfocal/Grossly Intact and Central Nerve's Intact
Psych: Calm
Data Reviewed
-
Labs: Labs Reviewed by me, Discussed with Physician (Infectious disease) and Discussed with Patient
[2025-02-25 09:04] LABS: Hematocrit 37.4 % (37.0-47.0); Hemoglobin 12.4 g/dL (12.0-16.0); Mean Corp Hgb Conc. 33.2 g/dL (33.0-37.0); Mean Corpuscular Volume 93.3 fL (81.0-99.0); Nucleated Red Blood Cells % 0 %; Platelet Count 214 10^3/uL (130-400); Red Cell Dist. Width 13.2 % (11.5-14.5)
--- NOTE | 2025-02-25 09:57 | W.PN.ID1 ---
Date of Service
Date of Service: February 25, 2025
Today's Communication
-Transition ceftriaxone (d4) to cipro 500mg po bid through 03/02.
- DC home today
Assessment / Plan
# Complicated UTI/left pyelonephritis
# E. coli bacteremia
# Leukocytosis - resolved, now leukopenia
-CT a/p: no hydronephrosis; + left pyelitis
- Ucx. E. coli
-Repeat bcx neg to date.
-Transition ceftriaxone (d4) to cipro 500mg po bid through 03/02.
- discussed potential side effects of cipro including tendinitis, C. diff.
# Enlarging bilateral ovarian cysts
- Follow-up with [facility] outpatient.
Chief Complaint
-: UTI and Bacteremia
Subjective / Review of Systems
Feels much improved.
Vital Signs / Physical Exam
Vital Signs
Vital Signs
Temp Pulse Resp BP Pulse Ox
97.8 F 50 16 121/76 97
02/25/25 07:20 02/25/25 07:20 02/25/25 07:20 02/25/25 07:20 02/25/25 07:20
Physical Exam
Constitutional: No Acute Distress
Cardiovascular: Regular Rate and S1/S2
Pulmonary: Clear
Gastrointestinal: Soft, Non Tender and Non Distended
Genito-Urinary: Negative CVA Tenderness
Extremities: Negative Edema
Neurological: AO x 3
Objective Data
Lab Data
Lab Results
02/25/25 08:24
02/23/25 08:57
Estimated Creat Clear 103 ml/min 02/23/25 08:57
Lactic Acid 1.4 mmol/L (0.7-2.0) 02/22/25 00:11
Total Bilirubin 0.8 mg/dl (0.2-1.3) 02/21/25 22:09
AST 18 U/L (14-36) 02/21/25 22:09
ALT 16 U/L (0-35) 02/21/25 22:09
Alkaline Phosphatase 89 U/L (38-126) 02/21/25 22:09
Most recent labs reviewed.
Micro Results:
02/23/25 09:48 Blood Culture - Preliminary
Blood/Venous No Growth in 48 hours- Final report to follow
02/23/25 08:57 Blood Culture - Preliminary
Blood/Venous No Growth in 48 hours- Final report to follow
02/21/25 22:09 Urine Culture - Final
Urine Escherichia coli
02/22/25 00:11 Blood Culture - Final
Blood/Venous Escherichia coli
Gram Stain - Final
02/22/25 00:11 Blood Culture - Preliminary
Blood/Venous Escherichia coli
Gram Stain - Preliminary
02/22/25 CT a/p: No renal or ureteral calculus. No bladder calculus. No hydronephrosis or obstructive uropathy. Findings suspicious for mild inflammatory changes in the left renal sinus and renal pelvis, concerning for urinary tract
infection/pyelitis. Clinical correlation recommended. Incidental bilateral ovarian cysts measuring up to 8.2 cm on the right and 4 cm in length. Low-attenuation intrahepatic space-occupying lesions. There appears to be a couple of cysts, though
there are other enhancing low-attenuation structures noted. Possibly hemangiomas. Further characterization would be recommended with follow-up MRI.
02/22/25 Pelvic US: Bilateral dominant ovarian cysts measuring up to 7.3 cm on the right and 8.7 cm on the left. Ovarian blood flow documented. Incidental small uterine fibroid.Bilateral dominant ovarian cysts measuring up to 7.3 cm on the right and
8.7 cm on the left. Ovarian blood flow documented. Incidental small uterine fibroid.
[2025-02-25] MEDS: CIPRO 500 MG PO (11:10)
--- NOTE | 2025-02-25 11:56 | W.DCSUMMARY ---
Discharge Summary
Discharge Data
Date of Admission: 02/25/25
Date of Discharge: 02/25/25
Total time spent discharging patient (in min): 32
-
Pending Results: Yes
Additional Pending Results:
Repeat blood cultures (negative at 48 hours)
Hospital Course
Discharging physician: Sherman Lakhani DO
Discharge disposition: Home
Hospital primary diagnoses:
E. coli bacteremia
Left-sided pyelitis
Enlarging ovarian cyst
Nausea
Chronic discharge diagnoses:
Nephrolithiasis
Ovarian cyst
Anxiety
Hospital course:
49-year-old female that presented to the and left-sided flank pain that started suddenly while she was at her son's baseball game. Upon arrival met SIRS criteria and blood cultures were obtained as well as urine culture. CT scan demonstrated signs
of early left pyelitis. Was started on IV ceftriaxone empirically. Blood and urine cultures ultimately grew E. coli with lange sensitivity. Infectious disease was consulted and repeated blood cultures which remain negative. Was transition to oral
ciprofloxacin 500 mg twice daily through the end of 03/02 to complete course of antibiotics. Recommend follow-up with director of emergency nursing due to evidence of enlarging ovarian cyst on ultrasound.
Consultants:
Infectious disease: Collette Parish MD
Pertinent imaging findings:
CT abdomen/pelvis with IV contrast (02/22/2025)
IMPRESSION: No renal or ureteral calculus. No bladder calculus. No hydronephrosis or obstructive uropathy. Findings suspicious for mild inflammatory changes in the left renal sinus and renal pelvis, concerning for urinary tract infection/pyelitis.
Clinical correlation recommended. Incidental bilateral ovarian cysts measuring up to 8.2 cm on the right and 4 cm in length. Low-attenuation intrahepatic space-occupying lesions. There appears to be a couple of cysts, though there are other
enhancing low-attenuation structures noted. Possibly hemangiomas. Further characterization would be recommended with follow-up MRI
Pelvic/transvaginal ultrasound (02/22/2025)
IMPRESSION: Bilateral dominant ovarian cysts measuring up to 7.3 cm on the right and 8.7 cm on the left. Ovarian blood flow documented. Incidental small uterine fibroid.
Procedures: N/A
Follow-up:
Family doctor in 1 week
[facility] in 1 to 2 weeks
Infectious disease as needed
Discharge Plan
-
Patient Disposition: Home (Routine Discharge)
Discharge Diagnosis/Procedures: E. coli bacteremia
Left pyelitis (infection of part of your kidney)
Condition: Good
Diet: Low Cholesterol
Activity: As tolerated
Driving Restrictions: No driving for 24 hours
Bathing Restrictions: None
Blood Work: Follow-up with family doctor for BMP and CBC
Activity Restrictions/Additional Instructions:
If taking antacid, iron, zinc, magnesium, aluminum, calcium, or sucralfate, take these products 6 hours before or 2 hours after ciprofloxacin.
Instructions: Urinary tract infections in adults
Referrals:
Yifan Montalvo MD [Family Provider, Family Practice] - in less than 1 week
Collette Parish MD [Active, Infectious Diseases] - As needed
Additional Discharge Medication Instructions: Continue ciprofloxacin 500 mg every 12 hours through the end of 03/02/2025. Can take first dose of your prescription this evening
Use Zofran sublingual tablet every 8 hours as needed for nausea
Prescriptions:
New
ciprofloxacin HCl 500 mg tablet
500 mg PO Q12H 6 Days Qty: 12 0RF
ondansetron 4 mg tablet,disintegrating
4 mg PO Q8H PRN (Reason: nausea and vomiting) 5 Days Qty: 20 0RF
Continued
lorazepam [Ativan] 0.5 mg Tablet
0.5 mg PO TID PRN (Reason: anxiety)
escitalopram oxalate [Lexapro] 10 mg Tablet
10 mg PO DAILY
Discharge Orders:
Discharge Patient (As Directed); Ordered 02/25/25
Ordered By: Sherman Lakhani
Discharge Date and Time
Print Language: MOROCCAN
== END 2025-02-25 12:39 | disposition home or self-care (01) | DRG 690 ==
LOC: 4 WEST ACU 08:50
PROVIDERS: Physician Assistant; ADMITTING PHYSICIAN Internal Medicine; ATTENDING PHYSICIAN Internal Medicine; CONSULT PHYSICIAN Internal Medicine Infectious Disease; EMERGENCY PHYSICIAN Student in an Organized Health Care Education/Training Program; FAMILY PHYSICIAN Family Medicine
DX: N10 Acute pyelonephritis (principal); R78.81 Bacteremia; F41.1 Generalized anxiety disorder; D72.819 Decreased white blood cell count, unspecified; N20.0 Calculus of kidney; Z87.442 Personal history of urinary calculi; F41.9 Anxiety disorder, unspecified; B96.20 Unspecified Escherichia coli [E. coli] as the cause of diseases classified elsewhere; D25.9 Leiomyoma of uterus, unspecified; Z87.440 Personal history of urinary (tract) infections; Z90.49 Acquired absence of other specified parts of digestive tract
CPT/HCPCS: 74177; 76830; 76856; 80048; 80053; 81003; 81015; 82607; 82746; 83605; 84703; 85025; 87040; 87077; 87086; 87154; 87186; 87205; 93005; 96374; 96375; 99285; Q9967